=== PATIENT | female | born 2000 | race Asian ===

== ENCOUNTER 2022-12-29 17:08 | Emergency (ER) | payer OTHER ==
[~2022-12-29] VITALS: Ht 149.9 cm; Wt 65.9 kg
[2022-12-29 17:09] VITALS: TEMP 99.5
[2022-12-29 18:52] LABS: BASO % 0.4 % (0.0-1.0); EOS # 0.1 10^3/uL (0.0-0.5); EOS % 0.8 % (0.0-3.0); HEMATOCRIT 44.9 % (36.0-47.0); HEMOGLOBIN 14.5 g/dl (12.0-15.5); LYMPH # 1.4 10^3/uL (1.5-5.0); LYMPH % 18.9 % (24.0-44.0); MEAN CORPUSCULAR HEMOGLOBIN 28.5 pg (27.0-33.0); MEAN CORPUSCULAR HGB CONC 32.3 g/dl (32.0-36.5); MEAN CORPUSCULAR VOLUME 88.4 fl (80.0-96.0); MONO # 0.8 10^3/uL (0.0-0.8); NEUTROPHILS # 5.3 10^3/uL (1.5-8.5); NEUTROPHILS % 69.5 % (36.0-66.0); PLATELET COUNT, AUTOMATED 213 10^3/uL (150-450); RED BLOOD COUNT 5.08 10^6/uL (4.00-5.40); WHITE BLOOD COUNT 7.6 10^3/uL (4.0-10.0)
[2022-12-29 19:26] LABS: BLOOD UREA NITROGEN 6 MG/DL (9-23); CALCIUM LEVEL 9.4 MG/DL (8.5-10.1); CARBON DIOXIDE LEVEL 25 MMOL/L (20-31); CHLORIDE LEVEL 105 MMOL/L (98-107); CREATININE FOR GFR 0.52 MG/DL (0.55-1.30); GLUCOSE, FASTING 82 MG/DL (60-100); POTASSIUM SERUM 4.1 MMOL/L (3.5-5.1); SODIUM LEVEL 140 MMOL/L (136-145)
[2022-12-29 20:13] LABS: HCG, SERUM QUANTITATIVE 100663.6 MIU/ML (<4.2)
[2022-12-29 20:48] VITALS: BP 120/79; O2SAT 100
== END 2022-12-29 20:49 | disposition home or self-care (01) ==
LOC: M ED 17:08
DX: O20.0 Threatened abortion (principal); Z3A.08 8 weeks gestation of pregnancy

== ENCOUNTER 2023-08-12 11:34 | Inpatient (IN) | payer OTHER ==
[2023-08-12] VITALS (12 sets, daily range): BP systolic 111–141; BP diastolic 70–97; O2SAT 96
[~2023-08-12] VITALS: Ht 147.3 cm; Wt 77.0 kg
[2023-08-12] MEDS ORDERED: PNV,1TAB3 (11:54)
[2023-08-12] MEDS ORDERED: HOME MED LIST COMPLETE! XX SCH (11:55)
[2023-08-12] MEDS ORDERED: METHYLERGONOVINE MALEATE 0.2MG/ML 1ML VIAL IM PRN (12:25)
[2023-08-12] MEDS ORDERED: TRANEXAMIC ACID INJection 1,000 MG in NS 100 ML IV PRN (12:25)
[2023-08-12] MEDS ORDERED: OXYTOCIN DRIP 30 UNITS in IV 1 EA IV PRN (12:25)
[2023-08-12] MEDS ORDERED: CARBOPROST TROMETHAMINE 250 MCG/ML AMP IM PRN (12:25)
[2023-08-12 13:46] LABS: HEMATOCRIT 44.5 % (36.0-47.0); HEMOGLOBIN 14.6 g/dl (12.0-15.5); MEAN CORPUSCULAR HEMOGLOBIN 29.5 pg (27.0-33.0); MEAN CORPUSCULAR HGB CONC 32.8 g/dl (32.0-36.5); MEAN CORPUSCULAR VOLUME 89.9 fl (80.0-96.0); PLATELET COUNT, AUTOMATED 172 10^3/uL (150-450); RED BLOOD COUNT 4.95 10^6/uL (4.00-5.40); WHITE BLOOD COUNT 8.9 10^3/uL (4.0-10.0)
[2023-08-12] MEDS: LR 1,000 ML IV SCH (15:37)
[2023-08-12] MEDS: OXYTOCIN DRIP 30 UNITS in IV 1 EA IV SCH (15:38)
[2023-08-12] MEDS: miSOPROStol 50MCG 1/2 TABLET PO SCH (16:46)
[2023-08-12] MEDS: ONDANSETRON 4MG 2ML VIAL IV PRN (21:46)
[2023-08-13] VITALS (15 sets, daily range): BP systolic 98–176; BP diastolic 54–101; TEMP 97.1; O2SAT 95–100
[2023-08-13] MEDS: ceFAZolin SOD 2 GM in IV 1 EA IV ONE (03:25)
[2023-08-13] MEDS: BICITRA 30ML SOLN UDC PO ONE (03:31)
[2023-08-13] MEDS ORDERED: MORPHINE PRES-FREE INJ 10 MG/10 ML VIAL As Ordered ONE (03:35)
[2023-08-13] MEDS ORDERED: LIDOCAINE 2% INJ 100 MG/5 ML SYRINGE As Ordered ONE (03:37)
[2023-08-13] MEDS ORDERED: OXYTOCIN 30UNITS IN 0.9% NaCl 500ML IV BAG As Ordered ONE (03:37)
[2023-08-13] MEDS ORDERED: KETOROLAC 60MG 2ML VIAL As Ordered ONE (03:37)
[2023-08-13] MEDS ORDERED: ACETAMINOPHEN 1000MG 100ML IV BAG As Ordered ONE (03:37)
[2023-08-13] MEDS ORDERED: ONDANSETRON 4MG 2ML VIAL As Ordered ONE (03:37)
[2023-08-13] MEDS ORDERED: ePHEDrine SULFATE 25 MG/5 ML(5MG/ML) SYRINGE As Ordered ONE (03:37)
[2023-08-13] MEDS ORDERED: PHENYLephrine 500MCG 5ML (100MCG/ML) SYRINGE As Ordered ONE (03:37)
[2023-08-13 04:32] LABS: CORD GAS ABE A -5.3; CORD GAS ABE V -6.7; CORD GAS HCO3 A 26.9 MMOL/L; CORD GAS O2 SAT A 26.5 %; CORD GAS O2 SAT V 75.6 %; CORD GAS PCO2 A 85.1 mmHg; CORD GAS PH A 7.118 UNITS; CORD GAS PH V 7.249 UNITS; CORD GAS PO2 V 39.1 mmHg; CORD GAS SBC A 18.4 MMOL/L; CORD GAS SBC V 18.6 MMOL/L; CORD GAS TCO2 A 29.5 MMOL/L; CORD GAS TCO2 V 22.5 MMOL/L
[2023-08-13] MEDS ORDERED: diphenhydrAMINE 50MG/ML VIAL As Ordered ONE (05:00)
[2023-08-13] MEDS: LR 1,000 ML IV SCH (05:05)
[2023-08-13] MEDS ORDERED: METOCLOPRAMIDE INJ 10MG/2ML VIAL IV PRN ×2 (05:05→05:50)
[2023-08-13] MEDS: ACETAMINOPHEN 500 MG TAB PO SCH (05:05)
[2023-08-13] MEDS ORDERED: ONDANSETRON 4MG 2ML VIAL IV PRN ×2 (05:05→05:50)
[2023-08-13] MEDS ORDERED: METHYLERGONOVINE MALEATE 0.2MG/ML 1ML VIAL IM PRN (05:05)
[2023-08-13] MEDS ORDERED: RHOGAM 300MCG (1500IU) INJ IM SCH (05:05)
[2023-08-13] MEDS: OXYTOCIN DRIP 30 UNITS in IV 1 EA IV SCH (05:45)
[2023-08-13] MEDS: LACTATED RINGER'S 1000 ML IV STA (05:46)
[2023-08-13] MEDS: SLF 3 ML SYR IV SCH (05:50)
[2023-08-13] MEDS ORDERED: MEPERIDINE 25 MG/ML 1ML VIAL IV PRN (05:50)
[2023-08-13] MEDS ORDERED: **NOTE PATIENT COMMENT** MISC XX SCH (05:50)
[2023-08-13] MEDS ORDERED: diphenhydrAMINE 50MG/ML VIAL IV PRN (05:50)
[2023-08-13] MEDS ORDERED: HYDROMORPHONE HCL 0.5 MG/ 0.5 ML SYRINGE IV PRN (05:50)
[2023-08-13] MEDS ORDERED: NALOXONE INJ 0.4MG/1ML VIAL IV PRN ×2 (05:50)
[2023-08-13] MEDS ORDERED: oxyCODONE 5MG TAB PO PRN (05:50)
[2023-08-13] MEDS ORDERED: fentaNYL 100 MCG/2 ML INJECTION IV PRN (05:50)
[2023-08-13] MEDS: PRENATAL VITAMINS CHEWABLE TABLET PO SCH (08:07)
[2023-08-13] MEDS: DOCUSATE SODIUM 100MG CAPSULE PO SCH (08:07)
[2023-08-13] MEDS: oxyCODONE 5MG TAB PO PRN (09:03)
[2023-08-13] MEDS: KETOROLAC 30 MG/ML 1ML VIAL IV SCH (11:30)
[2023-08-14 02:00] VITALS: BP 120/72; O2SAT 97
[2023-08-14 05:47] VITALS: BP 129/83; O2SAT 98
[2023-08-14] MEDS: IBUPROFEN 800 MG TAB PO SCH (06:00)
[2023-08-14 07:12] LABS: HEMATOCRIT 38.9 % (36.0-47.0); MEAN CORPUSCULAR HEMOGLOBIN 29.4 pg (27.0-33.0); MEAN CORPUSCULAR HGB CONC 31.6 g/dl (32.0-36.5); MEAN CORPUSCULAR VOLUME 93.1 fl (80.0-96.0); PLATELET COUNT, AUTOMATED 154 10^3/uL (150-450); RED BLOOD COUNT 4.18 10^6/uL (4.00-5.40)
[2023-08-14 07:22] LABS: HEMOGLOBIN 12.3 g/dl (12.0-15.5)
[2023-08-14 10:00] VITALS: BP 111/62; O2SAT 98
[2023-08-14] MEDS: oxyCODONE 5MG TAB PO PRN (13:50)
[2023-08-14 14:00] VITALS: BP 130/78; O2SAT 97
[2023-08-14 18:00] VITALS: BP 112/75; O2SAT 99
[2023-08-14 22:00] VITALS: BP 129/74; O2SAT 99
[2023-08-14] MEDS: SIMETHICONE 80MG CHEW TAB PO PRN (22:05)
[2023-08-15 02:00] VITALS: BP 121/77; O2SAT 100
[2023-08-15 06:00] VITALS: BP 111/65; O2SAT 98
[2023-08-15] MEDS ORDERED: COLA100C5 PO (06:11)
[2023-08-15] MEDS ORDERED: ACET-683 PO (06:11)
[2023-08-15] MEDS ORDERED: IBUP80TA PO (06:11)
[2023-08-15] MEDS ORDERED: OXYC-517 PO (06:11)
[2023-08-15] MEDS: MEASLES,MUMPS,RUBELLA VACCINE INJ (MMR-II) SC.IMMUN ONE (09:00)
[2023-08-15 10:00] VITALS: BP 103/54; O2SAT 97
== END 2023-08-15 12:20 | disposition home or self-care (01) | DRG 773 ==
LOC: M LDI 11:34 → M OBS 08-13 06:18
PROVIDERS: ADMIT Advanced Practice Midwife; ATTEND Obstetrics & Gynecology
PROC: 10D00Z1 Extraction of Products of Conception, Low, Open Approach (ICD-10-PCS; principal; 2023-08-13 03:45)
DX: O48.0 Post-term pregnancy (principal); Z3A.41 41 weeks gestation of pregnancy; O76 Abnormality in fetal heart rate and rhythm complicating labor and delivery; Z37.0 Single live birth

== ENCOUNTER 2025-03-21 09:17 | Emergency (ER) | payer OTHER ==
[~2025-03-21] VITALS: Ht 149.9 cm; Wt 72.9 kg
[~2025-03-21 09:17] MED LIST: ACET-683 PO; COLA100C5 PO; IBUP80TA PO; OXYC-517 PO; PNV,1TAB3
[2025-03-21] MEDS ORDERED: PROZ10CA11 PO (10:05)
[2025-03-21] MEDS: LIDOCAINE 5% PATCH TD ONE (10:41)
[2025-03-21] MEDS: KETOROLAC 30 MG/ML 1 ML VIAL IM ONE (10:41)
[2025-03-21 10:49] LABS: URINE PREG TEST NEGATIVE (NEGATIVE)
[2025-03-21 10:57] LABS: KETONE, URINE AUTO RFX NEGATIVE (NEGATIVE); MUCUS, URINE RFX SMALL (NEGATIVE); NITRITE, URINE AUTO RFX NEGATIVE (NEGATIVE); RBC, URINE AUTO RFX 5 /HPF (0-3); SQUAM EPITHELIAL CELL UR AURFX 8 /HPF (0-6); WBC, URINE AUTO RFX 10 /HPF (0-3)
[2025-03-21 10:58] LABS: LEUKOCYTE ESTERASE UR AUTO RFX 1+ (NEGATIVE)
[2025-03-21] MEDS: NS (Normal Saline) 0.9% 1,000 ML IV ONE (12:20)
[2025-03-21] MEDS ORDERED: TAMS-18 PO (12:26)
[2025-03-21] MEDS ORDERED: ONDA-282 PO (12:26)
[2025-03-21] MEDS ORDERED: HYDR-3713 PO (12:27)
[2025-03-21] MEDS: ONDANSETRON 4MG 2ML VIAL IV ONE (12:47)
[2025-03-21] MEDS: TAMSULOSIN 0.4 MG CAP PO ONE (12:47)
[2025-03-21] MEDS: MORPHINE 4 MG/ML 1 ML VIAL IV PRN (12:50)
[2025-03-21 12:56] LABS: BASO # 0.0 10^3/uL (0.0-0.2); BASO % 0.7 % (0.0-1.0); EOS # 0.0 10^3/uL (0.0-0.5); EOS % 0.7 % (0.0-3.0); LYMPH # 1.7 10^3/uL (1.5-5.0); LYMPH % 28.4 % (24.0-44.0); MONO # 0.3 10^3/uL (0.0-0.8); MONO % 5.5 % (2.0-8.0); NEUTROPHILS # 3.8 10^3/uL (1.5-8.5); NEUTROPHILS % 64.5 % (36.0-66.0); PLATELET COUNT, AUTOMATED 241 10^3/uL (150-450)
[2025-03-21 13:26] LABS: CALCIUM LEVEL 9.4 MG/DL (8.5-10.1); CARBON DIOXIDE LEVEL 26 MMOL/L (20-31); CHLORIDE LEVEL 105 MMOL/L (98-107); CREATININE FOR GFR 0.90 MG/DL (0.55-1.30); GLOMERULAR FILTRATION RATE > 90.0 (>60); POTASSIUM SERUM 4.1 MMOL/L (3.5-5.1); SODIUM LEVEL 142 MMOL/L (136-145)
[2025-03-21 13:49] VITALS: BP 127/72; TEMP 98.1
[2025-03-21 13:51] VITALS: O2SAT 99
[2025-03-21] MEDS ORDERED: NITR100C3 PO (14:32)
== END 2025-03-21 14:51 | disposition home or self-care (01) ==
LOC: M ED 09:17
DX: N39.0 Urinary tract infection, site not specified (principal); N13.39 Other hydronephrosis; N20.0 Calculus of kidney; K44.9 Diaphragmatic hernia without obstruction or gangrene; F12.10 Cannabis abuse, uncomplicated; Z91.013 Allergy to seafood; Z79.1 Long term (current) use of non-steroidal anti-inflammatories (NSAID); Z79.899 Other long term (current) drug therapy
CPT/HCPCS: 74176; 80048; 81001; 83605; 84703; 85025; 87086; 96361; 96372; 96374; 96375; 99284; J1885; J2405

== ENCOUNTER 2025-03-25 12:24 | Emergency (ER) | payer OTHER ==
[~2025-03-25] VITALS: Ht 149.9 cm; Wt 73.2 kg
[~2025-03-25 12:24] MED LIST changes: +HYDR-3713 PO; +NITR100C3 PO; +ONDA-282 PO; +PROZ10CA11 PO; +TAMS-18 PO
[2025-03-25 13:48] LABS: BASO # 0.0 10^3/uL (0.0-0.2); BASO % 0.6 % (0.0-1.0); EOS # 0.1 10^3/uL (0.0-0.5); EOS % 1.2 % (0.0-3.0); LYMPH # 1.6 10^3/uL (1.5-5.0); LYMPH % 31.7 % (24.0-44.0); MONO # 0.4 10^3/uL (0.0-0.8); MONO % 7.8 % (2.0-8.0); NEUTROPHILS # 3.0 10^3/uL (1.5-8.5); NEUTROPHILS % 58.7 % (36.0-66.0); PLATELET COUNT, AUTOMATED 217 10^3/uL (150-450)
[2025-03-25 13:57] LABS: KETONE, URINE AUTO RFX NEGATIVE (NEGATIVE); MUCUS, URINE RFX SMALL (NEGATIVE); NITRITE, URINE AUTO RFX NEGATIVE (NEGATIVE); RBC, URINE AUTO RFX 4 /HPF (0-3); SQUAM EPITHELIAL CELL UR AURFX 5 /HPF (0-6)
[2025-03-25 14:02] LABS: LEUKOCYTE ESTERASE UR AUTO RFX 1+ (NEGATIVE); WBC, URINE AUTO RFX 11 /HPF (0-3)
[2025-03-25 14:18] LABS: ALT/SGPT 13 U/L (7.0-40); AST/SGOT 14 U/L (<34); CALCIUM LEVEL 9.3 MG/DL (8.5-10.1); CARBON DIOXIDE LEVEL 22 MMOL/L (20-31); CHLORIDE LEVEL 108 MMOL/L (98-107); CREATININE FOR GFR 0.76 MG/DL (0.55-1.30); GLOMERULAR FILTRATION RATE > 90.0 (>60); POTASSIUM SERUM 4.5 MMOL/L (3.5-5.1); SODIUM LEVEL 142 MMOL/L (136-145)
[2025-03-25] MEDS ORDERED: ONDA-282 PO (19:28)
[2025-03-25] MEDS ORDERED: TAMS-18 PO (19:28)
[2025-03-25 19:34] VITALS: BP 138/81; TEMP 99.4; O2SAT 99
== END 2025-03-25 19:40 | disposition home or self-care (01) ==
LOC: M ED 12:24
DX: N20.0 Calculus of kidney (principal); Z91.030 Bee allergy status; Z79.1 Long term (current) use of non-steroidal anti-inflammatories (NSAID); Z79.899 Other long term (current) drug therapy

== ENCOUNTER → 2025-04-05 | Outpatient (REF) | payer OTHER ==
[2025-04-05 13:16] LABS: APPEARANCE, URINE HAZY (CLEAR); BACTERIA, URINE AUTO NEGATIVE (NEGATIVE); BILIRUBIN, URINE AUTO NEGATIVE (NEGATIVE); BLOOD, URINE BLOOD 1+ (NEGATIVE); GLUCOSE, URINE (UA) AUTO NEGATIVE (NEGATIVE); KETONE, URINE AUTO NEGATIVE (NEGATIVE); LEUKOCYTE ESTERASE, URINE AUTO NEGATIVE (NEGATIVE); MUCUS, URINE SMALL (NEGATIVE); NITRITE, URINE AUTO NEGATIVE (NEGATIVE); PROTEIN, URINE AUTO NEGATIVE (NEGATIVE); RBC, URINE AUTO 3 /HPF (0-3); SPECIFIC GRAVITY URINE AUTO 1.018 (1.002-1.035); SQUAMOUS EPITHELIAL CELL UR AU 6 /HPF (0-6); UROBILINOGEN, URINE AUTO 0.2 mg/dL (0.0-2.0); WBC, URINE AUTO 6 /HPF (0-3)
== END ==
LOC: M SMT 12:44
PROVIDERS: ATTEND Nurse Practitioner Family
DX: R39.9 Unspecified symptoms and signs involving the genitourinary system (principal)